=== PATIENT | male | born 1960 | race Caucasian/White ===

== ENCOUNTER → 2018-11-05 | Outpatient (CLI) | payer BC, OTHER ==
[~2018-11-05] MED LIST: /PANT40TA PO; /PRAV20TA OR; ALINIA PO; AMMONIUM LACTATE TOP; ASPI81TA83 PO; CO Q-10 PO; COLCRYS PO; CRES5TAB PO; DIOV80TA PO; FEBU40TA PO; GABA600T3 OR; IBUPPOW25 PO; ISOVUE-370 76% 100ML VIAL (Q9967) As Ordered ONE; LEVO100T OR; MECL25TA2 OR; NABU750T OR; NORCOBULK PO; Norvasc PO; PRIL40CA OR; SING10TA31 OR; SYNT50TA OR; TRAM50TA2 OR; VICO5TAB OR; [UNRECOGNIZED DRUG - OTHER] PO
--- NOTE | 2018-11-06 08:48 | REP ---
CT abdomen with IV but without oral contrast: History: Cystic kidney disease. Comparison CT study March 20, 2016. CT contrast dose: 100 ml of intravenous Isovue [address] findings: Preliminary digital manager economic radiograph demonstrates an unremarkable bowel gas pattern. A right hip replacement is seen. There is mild diffuse fatty infiltration of the liver. No adrenal lesion is seen. No focal liver mass lesion is observed. No abnormalities noted in the gallbladder. The spleen is unremarkable. No pancreatic abnormality is seen. There is diverticulosis affecting the splenic flexure and descending segment of the colon. No retroperitoneal mass or adenopathy is seen. Normal caliber aorta is noted. There is a complex cystic lesion involving the mid pole level of the right kidney projecting anteriorly. There is focal cyst wall calcification in the lesion. Overall dimensions are 4.5 x 5.1 x 4.0 cm. Dual-phase postcontrast imaging shows no evidence of enhancement within the cyst or septations. No other renal lesion is observed. There is no evidence of hydronephrosis. No intrarenal calculus is seen. Impression: Complex cyst right mid kidney containing some focal cyst wall calcification but no contrast enhancement. Bosniak category II minimally complex cyst. This lesion is unchanged from the noncontrast CT imaging dated than March 20, 2016. Electronically Signed by Jamison Olivier MD 11/06/2018 08:40 A
== END ==
LOC: M RAD 12:24
PROVIDERS: ATTEND Internal Medicine Pulmonary Disease
DX: R91.1 Solitary pulmonary nodule (principal); K57.30 Diverticulosis of large intestine without perforation or abscess without bleeding; N28.1 Cyst of kidney, acquired
CPT/HCPCS: 74160; Q9967

== ENCOUNTER → 2018-11-05 | Outpatient (CLI) | payer BC, OTHER ==
[~2018-11-05] MED LIST changes: -ISOVUE-370 76% 100ML VIAL (Q9967) As Ordered ONE
--- NOTE | 2018-11-06 08:45 | REP ---
CT chest without contrast: History: Pulmonary nodule. High-resolution study. No comparison chest CT studies available. 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 There is no evidence of pleural or pericardial effusion. No hilar or mediastinal mass or adenopathy is observed. No adrenal lesion is seen. There is a complex cyst in the upper pole of the right kidney. Thoracic aorta is normal in caliber. There is mild vascular calcification along the course of the left coronary artery. No bony destructive lesion is seen. There are multiple tiny pulmonary nodules bilaterally. On page 81 of 366 in series 201 of today's study there is a 3 mm nodule which is likely calcified. It has Hounsfield unit density of almost 600. On page 139 of the same series, there is a subpleural right lower lobe nodule which is not visibly calcified measuring 5 mm. On page 166 in this same series. There is a 5 mm nodule in the left lower lobe which is not visibly calcified. On page 200 there is some linear fibrosis in the lingula at the left lung base. On page 231 there is a left lower lobe nodular density which is 4 mm in diameter and which is not visibly calcified. This study is otherwise unremarkable. Impression: Multiple small subcentimeter nodules bilaterally. The largest of which is 5 mm. Consider interval followup CT study in 1 year. Complex cyst upper pole right kidney will be described in more detail on CT abdomen study. Electronically Signed by Jamison Olivier MD 11/06/2018 08:26 P
== END ==
LOC: M RAD 12:20
PROVIDERS: ATTEND Urology
DX: Q61.8 Other cystic kidney diseases (principal); R91.8 Other nonspecific abnormal finding of lung field

== ENCOUNTER → 2018-12-16 | Outpatient (REF) | payer OTHER | LOC: M LAB REF 17:11 | PROVIDERS: ATTEND Internal Medicine Pulmonary Disease | DX: R05 Cough (principal) ==

== ENCOUNTER → 2019-09-26 | Outpatient (CLI) | payer BC, OTHER ==
[~2019-09-26] MED LIST changes: -/PANT40TA PO; -/PRAV20TA OR; +ISOVUE-370 76% 100ML VIAL (Q9967) As Ordered ONE; +PRAV1TAB39 OR; +PROT1TAB2 PO
--- NOTE | 2019-09-26 18:57 | REP ---
CT of the chest with IV contrast for follow up of lung nodules: Comparison is 11/05/2018. There are the following lung nodules: Image 29, right upper lobe posteriorly, this is likely a vessel, and is unchanged in size. Image 48, right upper lobe posteriorly, 5 mm, unchanged. Image 56, left lower lobe, 7 mm. This is unchanged upon remeasuring the nodule on the prior study once slice higher. Image 70, left lower lobe along the major fissure, linear fibrosis, unchanged. Image 78, left lower lobe, 4 mm, unchanged. No new lung nodules or masses are identified. There are no infiltrates or pleural effusions. There is no hilar, mediastinal or axillary adenopathy. Thoracic aorta is unremarkable. Cardiac size is normal. Upper abdomen: The visualized areas of the liver, gallbladder, pancreas and spleen are unremarkable. The adrenals are unremarkable. The kidneys are incompletely demonstrated. The right renal cyst identified previously is not included. Impression: The lung nodules are unchanged. Electronically Signed by Desmond Mcnair MD 09/26/2019 06:48 P
== END ==
LOC: M RAD 15:19
PROVIDERS: ATTEND Internal Medicine Pulmonary Disease
DX: R91.8 Other nonspecific abnormal finding of lung field (principal)
CPT/HCPCS: 71260; Q9967

== ENCOUNTER → 2019-09-26 | Outpatient (CLI) | payer BC, OTHER ==
[~2019-09-26] MED LIST changes: -ISOVUE-370 76% 100ML VIAL (Q9967) As Ordered ONE
--- NOTE | 2019-09-26 19:06 | REP ---
CT of the abdomen, multiphase imaging for renal cyst follow-up: Comparison is 11/05/2018. The study is initially performed without IV contrast. After IV contrast, immediate and delayed imaging is performed. There is a right renal cyst arising from the anterior cortex having a lobulated margin measuring 4.3 cm, as previously. There is a faintly visible septation containing a calcification, as previously. It is unchanged in appearance from the prior study and meets the criteria for a Bosniak type 2 minimally complex renal cyst. There are no other renal cysts. There are no renal calculi. There is no hydronephrosis. There are no solid renal masses. There is geographic hepato steatosis. This is unchanged. The gallbladder, pancreas, spleen, adrenals and abdominal aorta are unremarkable and unchanged. The visualized bowel and mesentery are unremarkable. Impression: Bosniak type 2 right renal cyst, unchanged from the prior study. Electronically Signed by Desmond Mcnair MD 09/26/2019 06:57 P
== END ==
LOC: M RAD 15:15
PROVIDERS: ATTEND Urology
DX: Q61.8 Other cystic kidney diseases (principal)

== ENCOUNTER → 2020-10-18 | Outpatient (CLI) | payer BC, OTHER ==
--- NOTE | 2020-10-18 22:35 | REP ---
INDICATION: ABNORMAL FINDING OF LUNG FIELD COMPARISON: 09/26/2019, 11/05/2018 TECHNIQUE: Axial noncontrast images from the thoracic inlet to the upper abdomen with coronal and sagittal reformations. This CT examination was performed using the following dose reduction techniques: Automated exposure control, adjustment of mA and/or kv according to the patient's size, and use of iterative reconstruction technique. FINDINGS: Few small scattered bilateral pulmonary nodules measuring up to approximately 4 mm remain essentially stable. The largest such nodule is identified in the left lower lobe (image 50). The lung medellin are otherwise well aerated and clear. No consolidation, further suspicious nodule or mass lesion. No pleural effusion. No pneumothorax. Tracheobronchial tree is patent. No adenopathy. Mediastinum demonstrates mild atherosclerotic changes to the thoracic aorta and coronary arteries without aortic aneurysm or cardiomegaly. No pericardial effusion. Limited upper abdomen demonstrates normal bilateral adrenal glands and complex septated right renal cyst incompletely evaluated. Musculoskeletal structures demonstrate age-related changes without acute osseous abnormality. IMPRESSION: Few scattered small pulmonary nodules up to 4 mm remains stable compared through 2018. High risk patients may warrant annual surveillance while low risk patients require no further evaluation. <Electronically signed by Yoni Santana > 10/18/20 [id number]
== END ==
LOC: M RAD 11:05
PROVIDERS: ATTEND Internal Medicine Pulmonary Disease
DX: R91.8 Other nonspecific abnormal finding of lung field (principal)

== ENCOUNTER → 2021-07-26 | Outpatient (CLI) | payer BC, OTHER ==
--- NOTE | 2021-07-27 15:47 | SLEEPCENT ---
DATE: 07/26/2021 ORDERED BY: Ashanti Phillips MD Nocturnal polysomnography was performed for evaluation of sleep physiology in this patient with a history of excessive somnolence and nonrestorative sleep. Seven hours and 29 minutes of data were reviewed. There were 313 minutes of sleep identified. Sleep latency was prolonged at 51.5 minutes. REM latency was prolonged at 144.5 minutes. Sleep architecture showed fragmentation. There were two REM cycles noted. Overall sleep efficiency was 70.7%. The electrocardiogram showed a sinus rhythm with an average heart rate of 68 beats per minute. Rate ranged 55-90. EEG showed reasonably normal waveforms for wake and sleep. There were 86 respiratory events identified of 10 seconds in duration or greater for an apnea-hypopnea index of 16.5. The events were obstructive, not exclusive to sleep stage nor body posture. Arousals from respiratory events occurred 4.6 times per hour. There was some activity noted in the limb leads. One train of 30 events. Limb movement arousal index was 5.9. IMPRESSIONS: Obstructive sleep apnea syndrome (G47.33). Apnea-hypopnea index 16.5. RECOMMENDATION: The patient should be encouraged to return to [facility] for pressure therapy. In the interim, alcohol and sedative avoidance should be practiced and caution exercised during the operation of motor vehicles. cc: Tino Carbone MD
== END ==
LOC: M SLEEP 20:00
PROVIDERS: ATTEND Internal Medicine Pulmonary Disease
DX: G47.30 Sleep apnea, unspecified (principal)

== ENCOUNTER → 2022-08-27 | Outpatient (CLI) | payer BC, OTHER ==
[~2022-08-27] MED LIST changes: +FEBU40TA2 PO; +GABA-283 PO; +LEVO50TA5 PO; +LISI20TA35 PO; +LIVA4TAB PO; +MELO15TA28 PO
== END ==
LOC: M LABSMTC 10:00
PROVIDERS: ATTEND Anesthesiology
DX: Z11.52 Encounter for screening for COVID-19 (principal); Z20.822 Contact with and (suspected) exposure to COVID-19

== ENCOUNTER → 2022-10-09 | Outpatient (CLI) | payer BC, OTHER | LOC: M LABSMTC 09:26 | PROVIDERS: ATTEND Anesthesiology | DX: Z01.812 Encounter for preprocedural laboratory examination (principal); Z11.52 Encounter for screening for COVID-19 ==

== ENCOUNTER 2022-10-11 11:06 | Day surgery (SDC) | payer BC, OTHER ==
[~2022-10-11] VITALS: Ht 182.9 cm; Wt 149.7 kg
[~2022-10-11 11:06] MED LIST changes: +NS 1,000 ML IV ONE
[2022-10-11] MEDS ORDERED: propofoL 200 MG/20 ML VIAL As Ordered ONE (11:55)
[2022-10-11 12:22] VITALS: BP 136/83
== END 2022-10-11 12:31 | disposition home or self-care (01) ==
LOC: M OPP 11:06
PROVIDERS: ATTEND Surgery
DX: Z12.11 Encounter for screening for malignant neoplasm of colon (principal); Z86.010 Personal history of colon polyps; K63.5 Polyp of colon; K64.1 Second degree hemorrhoids; K57.30 Diverticulosis of large intestine without perforation or abscess without bleeding; I10 Essential (primary) hypertension; E78.5 Hyperlipidemia, unspecified; M10.9 Gout, unspecified; M06.9 Rheumatoid arthritis, unspecified; E03.9 Hypothyroidism, unspecified; K21.9 Gastro-esophageal reflux disease without esophagitis; M19.90 Unspecified osteoarthritis, unspecified site; G47.30 Sleep apnea, unspecified; Z87.891 Personal history of nicotine dependence; Z96.641 Presence of right artificial hip joint; Z88.1 Allergy status to other antibiotic agents; Z79.890 Hormone replacement therapy; Z79.899 Other long term (current) drug therapy

== ENCOUNTER → 2023-09-10 | Outpatient (CLI) | payer BC, OTHER ==
[~2023-09-10] MED LIST changes: -FEBU40TA2 PO; +FEBU40TA6 PO; -GABA-283 PO; +GABA-284 PO; -NS 1,000 ML IV ONE
== END ==
LOC: M RAD 08:50
PROVIDERS: ATTEND Urology
DX: N28.1 Cyst of kidney, acquired (principal)

== ENCOUNTER → 2023-09-10 | Outpatient (CLI) | payer BC, OTHER | LOC: M RAD 08:47 | PROVIDERS: ATTEND Physician Assistant | DX: D21.4 Benign neoplasm of connective and other soft tissue of abdomen (principal) ==

== ENCOUNTER → 2024-09-30 | Outpatient (REF) | payer OTHER ==
[2024-09-30 14:08] LABS: HEMATOCRIT 49.2 % (42.0-52.0); HEMOGLOBIN 16.9 g/dl (13.5-17.5); MEAN CORPUSCULAR HGB CONC 34.3 g/dl (32.0-36.5); MEAN CORPUSCULAR VOLUME 90.1 fl (80.0-96.0); PLATELET COUNT, AUTOMATED 164 10^3/uL (150-450); RED BLOOD COUNT 5.46 10^6/uL (4.30-6.10); WHITE BLOOD COUNT 7.1 10^3/uL (4.0-10.0)
[2024-09-30 14:16] LABS: ALBUMIN 3.9 G/DL (3.2-5.2); ALKALINE PHOSPHATASE 70 U/L (40-129); ALT/SGPT 51 U/L (7.0-40); AST/SGOT 28 U/L (<34); BILIRUBIN,TOTAL 0.8 MG/DL (0.3-1.2); BLOOD UREA NITROGEN 15 MG/DL (9-23); CALCIUM LEVEL 10.5 MG/DL (8.3-10.6); CARBON DIOXIDE LEVEL 27 MMOL/L (20-31); CHLORIDE LEVEL 108 MMOL/L (98-107); CHOLESTEROL LEVEL 192 MG/DL (<200); CHOLESTEROL RISK RATIO 4.02 (<5); CREATININE FOR GFR 0.91 MG/DL (0.70-1.30); GLOMERULAR FILTRATION RATE > 60.0 (>49); GLUCOSE, FASTING 92 MG/DL (74-106); HDL CHOLESTEROL 47.7 MG/DL (>40); LDL CHOLESTEROL 111.5 MG/DL (<100); NON-HDL-C 144.3 MG/DL; POTASSIUM SERUM 4.6 MMOL/L (3.5-5.1); SODIUM LEVEL 140 MMOL/L (136-145); THYROID STIMULATING HORMONE 0.605 uIU/ML (0.55-4.78); TOTAL PROTEIN 6.9 G/DL (5.7-8.2); TRIGLYCERIDES LEVEL 164 MG/DL (<150)
== END ==
LOC: M LABDRAWC 11:51
PROVIDERS: ATTEND Physician Assistant
DX: I10 Essential (primary) hypertension (principal); E03.9 Hypothyroidism, unspecified; E78.2 Mixed hyperlipidemia

== ENCOUNTER → 2025-06-19 | Outpatient (CLI) | payer OTHER | LOC: M EKG 13:11 | PROVIDERS: ATTEND Internal Medicine Cardiovascular Disease | DX: I49.40 Unspecified premature depolarization (principal) ==

== ENCOUNTER → 2025-06-23 | Outpatient (CLI) | payer BC | LOC: M CARPUL 09:19 | PROVIDERS: ATTEND Internal Medicine Cardiovascular Disease | DX: I25.10 Atherosclerotic heart disease of native coronary artery without angina pectoris (principal); R06.02 Shortness of breath; R94.31 Abnormal electrocardiogram [ECG] [EKG] ==

== ENCOUNTER → 2025-07-03 | Outpatient (CLI) | payer BC | LOC: M SLEEP HO 10:50 | PROVIDERS: ATTEND Internal Medicine Cardiovascular Disease | DX: G47.33 Obstructive sleep apnea (adult) (pediatric) (principal) ==

== ENCOUNTER → 2025-09-25 | Outpatient (REF) | payer BC ==
[2025-09-25 14:51] LABS: BASO # 0.1 10^3/uL (0.0-0.2); BASO % 0.7 % (0.0-1.0); EOS # 0.4 10^3/uL (0.0-0.5); EOS % 4.4 % (0.0-3.0); LYMPH # 2.5 10^3/uL (1.5-5.0); LYMPH % 27.3 % (24.0-44.0); MONO # 1.1 10^3/uL (0.0-0.8); MONO % 12.4 % (2.0-8.0); NEUTROPHILS # 5.0 10^3/uL (1.5-8.5); NEUTROPHILS % 54.9 % (36.0-66.0); PLATELET COUNT, AUTOMATED 201 10^3/uL (150-450)
[2025-09-25 14:53] LABS: CALCIUM LEVEL 9.9 MG/DL (8.3-10.6); CARBON DIOXIDE LEVEL 29.0 MMOL/L (20-31); CHLORIDE LEVEL 103.0 MMOL/L (98-107); CHOLESTEROL LEVEL 184.0 MG/DL (<200); CHOLESTEROL RISK RATIO 3.22 (<5); CREATININE FOR GFR 1.08 MG/DL (0.70-1.30); GLOMERULAR FILTRATION RATE 77.6 (>49); LDL CHOLESTEROL 97.2 MG/DL (<100); MAGNESIUM LEVEL 2.1 MG/DL (1.8-2.4); NON-HDL-C 127.0 MG/DL; POTASSIUM SERUM 4.8 MMOL/L (3.5-5.1); SODIUM LEVEL 138.0 MMOL/L (136-145); TRIGLYCERIDES LEVEL 149.0 MG/DL (<150)
[2025-09-25 14:55] LABS: FREE T4 1.24 NG/DL (0.89-1.76)
== END ==
LOC: M LABDRAWC 11:59
PROVIDERS: ATTEND Nurse Practitioner Family
DX: R06.02 Shortness of breath (principal); I25.10 Atherosclerotic heart disease of native coronary artery without angina pectoris